=== PATIENT | male | born 1960 | race Caucasian/White ===

== ENCOUNTER 2018-02-01 15:26 | Emergency (ER) | payer OTHER ==
--- NOTE | 2018-02-01 16:09 | RAD ---
TWO VIEW CHEST: 02/01/18 HISTORY: Chest pain. Lungs are clear of infiltrate. Heart and mediastinum are unremarkable. There is a focal osseous protuberance projecting over the mid left clavicle. This may represent an ol d clavicle fracture. Osseous structures otherwise unremarkable with mild degenerative changes in the shoulders. IMPRESSION: No acute lung process. POS: [facility]
[2018-02-01 16:17] LABS: #Eosinphils 0.1 thou/uL (0.0-0.7); #Monocytes 0.6 thou/uL (0.11-0.59); %Basophils 0.5 % (0.0-1.0); %Eosinophils 1.4 % (0.0-10.0); %Lymphocytes 25.9 % (21.0-51.0); %Monocytes 8.1 % (0.0-10.0); %Neutrophils 64.1 % (42.0-75.0); Hemoglobin 13.7 g/dL (14.0-18.0); Mean Corpuscular HGB CONC 32.5 g/dL (32.0-36.0); Mean Corpuscular Hemoglobin 28.5 pg (27.0-31.0); Mean Corpuscular Volume 87.5 fl (80.0-94.0); Mean Platelet Volume 8.8 fL (7.4-10.4); Platelet Count 205 thou/uL (130-400); RBC Distribution Width 11.2 % (11.5-14.5); Red Blood Cell (RBC) Count 4.81 mill/uL (4.70-6.10); White Blood Cell (WBC) Count 7.8 thou/uL (4.8-10.8)
[2018-02-01 16:28] LABS: INR-International Normal Ratio 0.9; Prothrombin Time 12.5 SEC (12.0-14.7)
[2018-02-01 16:35] LABS: D-Dimer Test Less than 0.27 *mcg/mL (0.27-0.43)
[2018-02-01 16:43] LABS: ALT (SGPT) 38 U/L (8-55); AST (SGOT) 37 U/L (5-34); Albumin 4.4 g/dL (3.5-5.0); Alkaline Phosphatase 71 U/L (40-150); Anion Gap 12 mmol/L (10-20); BUN (Urea Nitrogen) 11 mg/dL (8.4-25.7); Bilirubin, Total 0.5 mg/dL (0.2-1.2); Calc. Creatinine Clearance 0 mL/min (70-130); Calcium 9.8 mg/dL (7.8-10.44); Carbon Dioxide 24 mmol/L (22-29); Chloride 106 mmol/L (98-107); Estimated GFR-MDRD Greater than 90; Globulin 3.7 g/dL (2.4-3.5); Glucose 91 mg/dL (70-105); Lipase 33 U/L (8-78); Potassium 3.9 mmol/L (3.5-5.1); Protein, Total 8.1 g/dL (6.0-8.3); Sodium 138 mmol/L (136-145)
[2018-02-01 16:55] LABS: CKMB 1.2 ng/mL (0-6.6); Troponin I Less than 0.010 ng/mL (< 0.028)
[2018-02-01] MEDS ORDERED: Ketorolac Tromethamine 30 MG/ML VIAL ONE (17:30)
--- NOTE | 2018-02-12 14:23 | EKG ---
Test Reason : Blood Pressure : / mmHG Vent. Rate : 091 BPM Atrial Rate : 091 BPM P-R Int : 158 ms QRS Dur : 082 ms QT Int : 362 ms P-R-T Axes : 069 -02 038 degrees QTc Int : 445 ms Normal sinus rhythm Inferior infarct , age undetermined Abnormal ECG Confirmed by DUNG GA M.D. ([id number]), editor managing newspaper EDMUND BILLS ([id number]) on 02/12/2018 2:21:45 PM Referred By: Confirmed By:DUNG GA M.D.
== END 2018-02-01 17:52 | disposition home or self-care (01) ==
LOC: ERS 15:26
DX: R07.89 Other chest pain (principal)
CPT/HCPCS: 71046; 80053; 82553; 83690; 83880; 84484; 85025; 85379; 85610; 93005; 96361; 96374; 96375; J1885; J2270

== ENCOUNTER 2019-04-10 16:05 | Emergency (ER) | payer OTHER ==
[2019-04-10 16:28] LABS: #Eosinphils 0.1 thou/uL (0.0-0.7); #Lymphocytes 2.2 thou/uL (1.20-3.40); #Monocytes 0.5 thou/uL (0.11-0.59); #Neutrophils 2.5 thou/uL (1.40-6.50); %Basophils 0.5 % (0.0-1.0); %Eosinophils 2.2 % (0.0-10.0); %Lymphocytes 40.7 % (21.0-51.0); %Monocytes 9.6 % (0.0-10.0); %Neutrophils 47.1 % (42.0-75.0); Mean Corpuscular Hemoglobin 28.4 pg (27.0-31.0); Mean Corpuscular Volume 86.1 fL (78.0-98.0); Platelet Count 180 thou/uL (130-400); RBC Distribution Width 11.7 % (11.5-14.5); Red Blood Cell (RBC) Count 4.58 mill/uL (4.70-6.10); White Blood Cell (WBC) Count 5.4 thou/uL (4.8-10.8)
--- NOTE | 2019-04-10 16:39 | RAD ---
XR Chest Pa Lat STANDARD History: [Chest pain] Comparison: Chest February 01, 2018 Findings: Lungs are clear. No pneumothorax or effusion. Cardiac silhouette and mediastinal contours a re within normal limits. Impression: No acute intrathoracic abnormality.
[2019-04-10] MEDS ORDERED: Ketorolac Tromethamine 30 MG/ML VIAL ONE (16:45)
[2019-04-10 16:53] LABS: ALT (SGPT) 111 U/L (8-55); AST (SGOT) 102 U/L (5-34); Albumin 4.2 g/dL (3.5-5.0); Alkaline Phosphatase 90 U/L (40-150); Anion Gap 11 mmol/L (10-20); BUN (Urea Nitrogen) 18 mg/dL (8.4-25.7); Bilirubin, Total 0.8 mg/dL (0.2-1.2); CK (CPK) 95 U/L (30-200); Calc. Creatinine Clearance 0 mL/min (70-130); Calcium 9.5 mg/dL (7.8-10.44); Carbon Dioxide 28 mmol/L (22-29); Chloride 106 mmol/L (98-107); Estimated GFR-MDRD Greater than 90; Glucose 131 mg/dL (70-105); Potassium 3.8 mmol/L (3.5-5.1); Protein, Total 7.2 g/dL (6.0-8.3); Sodium 141 mmol/L (136-145)
--- NOTE | 2019-04-10 16:55 | RAD ---
THREE VIEWS LEFT SHOULDER: Comparison: Chest radiograph, 02-01-18. History: Left shoulder pain and tingling in the hand for one week. FINDINGS: Three views of the left shoulder shows a remote fracture of the left clavicle. No acute fracture or d islocation are seen. There also may be remote upper left rib fractures. IMPRESSION: 1. No evidence of acute osseous abnormality. 2. Remote left clavicle and rib fractures. POS: [facility]
== END 2019-04-10 18:04 | disposition home or self-care (01) ==
LOC: ERS 16:05
DX: S42.002A Fracture of unspecified part of left clavicle, initial encounter for closed fracture (principal); E78.5 Hyperlipidemia, unspecified; Z79.899 Other long term (current) drug therapy; X58.XXXA Exposure to other specified factors, initial encounter
CPT/HCPCS: 36415; 71046; 80053; 82550; 84484; 85025; 93005; 96372; J1885

== ENCOUNTER 2019-06-30 07:59 | Outpatient (CLI) | payer OTHER ==
--- NOTE | 2019-06-30 09:12 | MRI ---
CERVICAL SPINE MRI WITHOUT CONTRAST: Date: 06/30/2019 COMPARISON: None. HISTORY: Other cervical disc displacement C5-6, left arm radiculopathy with pain and numbness. TECHNIQUE: Multiplanar multisequence MR imaging of the cervical spine provided without contrast. FINDINGS: The sagittal STIR imaging demonstrates no focal area of osseous marrow edema. C2-3: Mild bilateral facet hypertrophy. No significant central canal or neural foraminal stenosis. C3-4: Mild bilateral facet hypertrophy. No significant central canal or neural foraminal stenosis. C4-5: There is disc space narrowing, disc desiccation, and minimal disc bulge. No significant central canal stenosis. Mild bilateral facet hypertrophy with no significant neural foraminal stenosis. C5-6: There is disc space narrowing and disc desiccation with a tiny central disc protrusion. No asso ciated central canal stenosis. Mild bilateral facet hypertrophy with no significant neural foraminal stenosis. C6-7: No significant central canal or neural foraminal stenosis. C7-T1: No significant central canal or neural foraminal stenosis. No focal area of abnormal signal intensity is identified within the cervical cord. IMPRESSION: No significant central canal or neural foraminal stenosis noted. Cervical spine degenerative disc dis ease and facet hypertrophy as detailed above. Transcribed Date/Time: 06/30/2019 9:38 AM
== END 2019-06-30 08:00 | disposition home or self-care (01) ==
LOC: TBSIIMAG 07:59
PROVIDERS: ATTEND Psychiatry & Neurology Neurology
DX: M50.222 Other cervical disc displacement at C5-C6 level (principal); M50.121 Cervical disc disorder at C4-C5 level with radiculopathy; M89.38 Hypertrophy of bone, other site
CPT/HCPCS: 72141

== ENCOUNTER 2020-04-29 | Outpatient (CLI) | payer OTHER | END 2020-04-29 09:22 | disposition home or self-care (01) | DX: M75.42 Impingement syndrome of left shoulder (principal); M19.012 Primary osteoarthritis, left shoulder; M75.82 Other shoulder lesions, left shoulder ==

== ENCOUNTER 2020-06-03 10:27 | Outpatient (CLI) | payer OTHER ==
[~2020-06-03 10:27] MED LIST: Magnevist 469MG/ML 20 ML VIAL ONE
--- NOTE | 2020-06-03 13:33 | MRI ---
Exam: Brachial plexus MRI HISTORY: Thoracic outlet syndrome, left side. Left arm pain, numbness, tingling and burning sensation . COMPARISON: None. FINDINGS: Visualized brain parenchyma, spinal cord and the cervical/upper thoracic vertebra have appropriate si gnal intensity. No abnormal enhancement. There is no abnormal enhancement in the left axillary and left lower neck soft tissues. Fat suppressed and postcontrast images are limited. No obvious signal abnormality along the left brac hial plexus. Remote injury to the left clavicle with bony remodeling is adjacent to the left brachial plexus and m ay cause some mass effect. IMPRESSION: Limited evaluation. No obvious masses or abnormal signal intensity at the level of the left brachial plexus. There does appear to be mild mass effect secondary to bony remodeling from remote left clavicle fracture. Transcribed Date/Time: 06/03/2020 2:03 PM
== END 2020-06-03 10:28 | disposition home or self-care (01) ==
LOC: BICMRI 10:27
PROVIDERS: ATTEND Specialist
DX: G54.0 Brachial plexus disorders (principal)
CPT/HCPCS: 71552; A9579

== ENCOUNTER 2020-10-31 06:54 | Outpatient (CLI) | payer OTHER ==
[2020-11-01 03:07] LABS: SARS-CoV-2 MS2 Positive; SARS-CoV-2 N Gene Negative; SARS-CoV-2 S Gene Negative; SARS-CoV-2 by NAA Not Detected (NotDetected); SARS-CoV-2 orf1ab Negative
== END 2020-10-31 06:55 | disposition home or self-care (01) ==
LOC: LABBT 06:54
PROVIDERS: ATTEND Specialist
DX: Z01.812 Encounter for preprocedural laboratory examination (principal); Z20.828 Contact with and (suspected) exposure to other viral communicable diseases
CPT/HCPCS: 87635; U0003

== ENCOUNTER 2020-11-05 11:45 | Day surgery (SDC) | payer OTHER ==
[2020-11-01 13:52] VITALS: BMI 27.2
[2020-11-05] MEDS ORDERED: Bupivacaine PF 0.5% 30 ML VIAL ONE ×2 (13:53→14:31)
[2020-11-05] MEDS ORDERED: EPINEPHrine 1 MG/ML AMP ONE (13:53)
[2020-11-05] MEDS ORDERED: methylPREDNISolone Acetate 40 mg/ml Vial ONE (14:31)
[2020-11-05] MEDS ORDERED: Lidocaine 1% w/Epinephrine 1:100K 20 ML VIAL ONE (14:31)
[2020-11-05] MEDS ORDERED: Sodium Chloride 0.9% 0 ML ONE (14:31)
[2020-11-05] MEDS ORDERED: Propofol 1,000 MG/100 ML VIAL IV ONE (14:58)
[2020-11-05] MEDS ORDERED: Fentanyl 100 MCG/2 ML VIAL ONE (14:59)
[2020-11-05] MEDS ORDERED: Midazolam HCl 2 mg/2 ml Vial ONE (15:26)
[2020-11-05] MEDS ORDERED: PROPOFOL 40 ML ONE (16:29)
--- NOTE | 2020-11-05 17:06 | RAD ---
XR Cervical Spine 1 View History: Dorsal column stimulator insertion Comparison: None. Findings: Dorsal column stimulator is in place with electrode tips at 2 separate levels, the right li micky at the inferior endplate of C2 and the left likely at the inferior endplate of C3. Impression: Fluoroscopy for surgical purposes.
--- NOTE | 2020-11-06 08:43 | OP ---
DATE OF PROCEDURE: 11/05/2020 PREOPERATIVE DIAGNOSES: 1. Complex regional pain syndrome of the left upper extremity, G90.512. 2. Chronic pain syndrome. POSTOPERATIVE DIAGNOSES: 1. Complex regional pain syndrome of the left upper extremity, G90.512. 2. Chronic pain syndrome. PROCEDURE PERFORMED: 1. Spinal cord stimulator generator implant. 2. Spinal cord stimulator lead implant x2. ESTIMATED BLOOD LOSS: 10 mL. SUMMARY OF PROCEDURE: The patient was taken to the procedure room and placed prone on the procedure room table. A time-out was performed. Using fluoroscopy, we located the interspace of C1-C2. We prepped the skin with DuraPrep and sterile drapes were applied. Using Marcaine with epinephrine, we made an incision using a 10 blade scalpel and blunt dissected this down to the fascial layer. We used a 14-gauge supplied fashion and engaged it in the ligament of C1-C2 and used loss of resistance to achieve access to the epidural space. Aspiration was negative for blood or CSF. We inserted the 8 contact Medtronic lead through the needle and under continuous fluoro, we guided it up the midline dorsal epidural space up to C2 and then we curved it to the left once we reached the top of the cervical spine just as in the trial. We performed the same exact technique for a second lead on the contralateral side and put this just left of midline in the same exact place as the trial at the level of C2. Stimulation was checked and patient felt paresthesia in all pain areas. We then took the needles out and made sure not to move the leads. We threaded anchors over these leads and then we sutured the anchors down to fascia using 2-0 silk suture x2. We pulled on the leads after they were anchored and there was no movement under continuous fluoro. We then anesthetized the skin in the left lower back. We chose this site as we wanted there to be slack on the leads, so that they would not pull. I was concerned about putting the battery pocket below the belt line and having tension on the leads. After the skin was anesthetized, we made an incision and blunt dissected this down to Tony's fascia. We blunt dissected superior to inferiorly to make a small battery pocket. We created a tension relief loop at the anchor site and then used a tunneling device to tunnel the 2 leads in the subcutaneous fat layer down to the battery pocket. We brought the leads to the battery pocket and created a second tension relief loop. We connected these to the battery and impedances were checked, which were all good. We then used a torque wrench to fixate these to the battery. The battery was sutured down to the fascia using the 2 with 2-0 silk suture. The battery was inserted into the pocket and it was easily inserted. We then approximated the fascial layers using 2-0 Vicryl suture in simple interrupted and horizontal mattress stitches. We closed this in multiple layers. We then used a 3-0 Rapide to approximate the skin with a subcuticular stitch. A layer of Dermabond was then placed over this. Once dry, we placed sterile 4x4s and Medipore tape. The patient was then taken to the Day Stay under stable condition with no apparent complications noted at this time. Job ID: [id number]
== END 2020-11-05 18:45 | disposition home or self-care (01) ==
LOC: SDC 11:45
PROVIDERS: ATTEND Specialist
PROC: 0JH70BZ Insertion of Single Array Stimulator Generator into Back Subcutaneous Tissue and Fascia, Open Approach (ICD-10-PCS; principal; 2020-11-05)
PROC: 00HU3MZ Insertion of Neurostimulator Lead into Spinal Canal, Percutaneous Approach (ICD-10-PCS; principal; 2020-11-05)
DX: G90.512 Complex regional pain syndrome I of left upper limb (principal); G89.4 Chronic pain syndrome; M19.90 Unspecified osteoarthritis, unspecified site; Z79.899 Other long term (current) drug therapy; Z87.891 Personal history of nicotine dependence
CPT/HCPCS: 72020; 76000; C1778; C1787; J0171; J0690; J2250; J2704; J2920; J3010; J3370; L8679; L8689; S0020